=== PATIENT | male | born 1980 | race Two or more races ===

== ENCOUNTER 2018-09-21 16:04 | Emergency (ER) | payer OTHER, SELFPAY ==
[2018-09-21 16:04] VITALS: BP 123/71; PULSE 94; RESP 18; TEMP 36.4; O2SAT 98; BMI 32.5
--- NOTE | 2018-09-21 16:21 | CT_ITS ---
STUDY: CT ABDOMEN AND PELVIS WITHOUT CONTRAST REASON FOR EXAM: Male, 38 years old. Right-sided abdominal pain after urination, feels of bulge RADIATION DOSAGE (If Supplied By Facility): CTDIvol = ( 16.86 ) mGy, DLP = ( 922.73 ) mGycm TECHNIQUE: Transaxial images were obtained from the dome of the diaphragm to the symphysis pubis without oral contrast, and without intravenous contrast. Sagittal and coronal images were reconstructed. Individualized dose optimization techniques were used for this CT. COMPARISON: None. FINDINGS: The visualized lung bases are unremarkable. The visualized portions of the heart are within normal limits. Normal liver. The gallbladder is contracted. Normal spleen. Normal pancreas. Normal bilateral adrenal glands. Normal right kidney. Multiple nonobstructing left renal stones measuring up to 7 mm. Normal visualized stomach. Normal small intestine. Normal colon. The appendix is visualized and appears normal. Normal abdominal aorta. Normal inferior vena cava. Normal retroperitoneum. Normal urinary bladder. Normal abdominal wall. Normal osseous structures. CT/Abdomen/Pelvis without Cont IMPRESSION: No evidence of acute intestinal pathology or acute obstructive uropathy. No hernias are seen. Electronically Signed: Patrick Coello MD at 17:31 EDT Tel , Service support ,
--- NOTE | 2018-09-21 16:24 | ED.VISSUMM ---
- ER Visit Summary Date of Service: 09/21/18 Chief Complaint: Abdominal pain History of Present Illness: The patient is a 38 M with right upper quadrant abdominal pain for 2 days. The pain started when he was urinating in a crouched position. The pain radiates through to his back. It is severe. Associated with no other symptoms. He never had this pain before. No history of gallbladder or liver disease. No respiratory or cardiac symptoms. No urinary symptoms. No GI symptoms. No fever or rash. No history of abdominal surgeries. No trauma. Pain is burning and shooting at times. Pain is very severe such that even if the water in the shower hits his skin, he is having severe pain. Physical Examination: Afebrile and vital signs unremarkable. Patient is alert and oriented. No acute distress. Inspection is normal. No rash. No distention. Tender to palpation with light touch over the right hemiabdomen. No guarding or rebound. The remainder of his exam is unremarkable. Test Results: Laboratory studies, urinalysis, CT pending. Emergency Department Course and Treatment: Patient declined pain medication. Given the severity of his symptoms, labs, urine, imaging performed. Will reevaluate. White count 12.1 and glucose 165. Hepatic panel and lipase unremarkable. Urinalysis unremarkable. CT abdomen and pelvis showed no acute findings. Patient was eventually treated with Toradol and Zofran. Patient's work-up is unremarkable. There are no symptoms that are consistent with biliary colic, renal colic. No evidence of shingles. Patient has abdominal wall pain, possible strain. I believe he is appropriate for outpatient follow-up. He may take [id number] remedies for pain. He was given a short course of [place] for breakthrough pain. Call PCP tomorrow. Return right away for any new or worsening issues. Treatment Plan: As above Disposition: Discharge Impression: Abdominal wall pain This note was generated with [employer] dictation software. It may contain incorrect words, spelling, and punctuation that were not noted in review of the chart prior to signing ED Disposition - Plan for ED Patient: Referrals: Real Robles MD [Primary Care Provider] -
--- NOTE | 2018-09-21 16:30 | ED.DCSUM_ITS ---
- ER Visit Summary Date of Service: 09/21/18 Chief Complaint: Abdominal pain History of Present Illness: The patient is a 38 M with right upper quadrant abdominal pain for 2 days. The pain started when he was urinating in a crouched position. The pain radiates through to his back. It is severe. Associated with no other symptoms. He never had this pain before. No history of gallbladder or liver disease. No respiratory or cardiac symptoms. No urinary symptoms. No GI symptoms. No fever or rash. No history of abdominal surgeries. No trauma. Pain is burning and shooting at times. Pain is very severe such that even if the water in the shower hits his skin, he is having severe pain. Physical Examination: Afebrile and vital signs unremarkable. Patient is alert and oriented. No acute distress. Inspection is normal. No rash. No distention. Tender to palpation with light touch over the right hemiabdomen. No guarding or rebound. The remainder of his exam is unremarkable. Test Results: Laboratory studies, urinalysis, CT pending. Emergency Department Course and Treatment: Patient declined pain medication. Given the severity of his symptoms, labs, urine, imaging performed. Will reevaluate. White count 12.1 and glucose 165. Hepatic panel and lipase unremarkable. Urinalysis unremarkable. CT abdomen and pelvis showed no acute findings. Patient was eventually treated with Toradol and Zofran. Patient's work-up is unremarkable. There are no symptoms that are consistent with biliary colic, renal colic. No evidence of shingles. Patient has abdominal wall pain, possible strain. I believe he is appropriate for outpatient follow-up. He may take [id number] remedies for pain. He was given a short course of [place] for breakthrough pain. Call PCP tomorrow. Return right away for any new or worsening issues. Treatment Plan: As above Disposition: Discharge Impression: Abdominal wall pain This note was generated with [employer] dictation software. It may contain incorrect words, spelling, and punctuation that were not noted in review of the chart prior to signing ED Disposition - Plan for ED Patient: Referrals: Real Robles MD [Primary Care Provider] -
[2018-09-21 16:38] LABS: Bacteria 0 SEEN /hpf (None Seen); Mucous, Urine 0 SEEN /hpf (<or=2+); Red Blood Cells-Urine 0 SEEN /hpf (0-5); Squamous Epithelial Cells - UA 0 SEEN /hpf (0-5); White Blood Cells 0 SEEN /hpf (0-5)
[2018-09-21 16:39] LABS: Color, Urine Yellow (Yellow); Glucose, Dipstick Normal (Normal); Ketone-Dipstick Negative (Negative); Leukocyte Esterase-Dipstick Negative /ul (Negative); Nitrite-Dipstick Negative (Negative); Occult Blood-Urine Negative /ul (Negative); Protein-Dipstick Negative (Negative); Specific Gravity, Urine 1.015 (1.002-1.030); Urine Bilirubin Dipstick Negative (Negative); Urine Clarity Clear (Clear); Urine Urobilinogen Normal (Normal)
[2018-09-21] MEDS: 0.9% Normal Saline 1,000 ML 1000 ML IV (16:43)
[2018-09-21 16:50] LABS: Absolute Lymphocyte Count 2.78 X10^3/ul (0.83-4.51); Absolute Neutrophil Count 8.2 X10^3/uL (2.0-7.7); Basophil# 0.01 X10^3/uL; Basophil% 0.1 % (0-1); Eosinophil# 0.13 X10^3/uL; Eosinophils% 1.1 % (0-5); Hematocrit 45.1 % (40-54); Hemoglobin 14.8 g/dl (13.0-16.5); Lymphocyte # 2.78 X10^3/ul (4.0); Lymphocyte % 22.9 % (19-41); Mean Corp Hgb Conc 32.8 g/gl (32-36); Mean Corpuscular Hgb 27.6 pg (27.0-32.0); Mean Corpuscular Volume 84.1 fL (80-94); Mean Platelet Vol. 9.6 fl (6.2-12.0); Monocyte# 0.95 X10^3/uL; Monocyte% 7.8 % (0-10); Neutrophil # 8.24 X10^3/uL (2.7-7.7); Neutrophil % 67.9 % (47-70); Platelet Count 258 K/mm3 (150-450); RBC Distribution Width CV 14.2 % (11.6-14.6); RBC Distribution Width SD 43.9 fl (35.1-43.9); Red Blood Count 5.36 M/mm3 (4.6-6.2); White Blood Count 12.1 K/mm3 (4.4-11.0)
[2018-09-21 16:51] LABS: POSITIVE COUNT NO; POSITIVE DIFFERENTIAL NO; POSITIVE MORPHOLOGY NO
[2018-09-21 17:05] LABS: ALB/GLOB Ratio 0.9 RATIO (0.9-2.4); AST(SGOT) 12 U/L (15-37); Alanine Aminotransfer ALT/SGPT 23 U/L (16-61); Alkaline Phosphatase 82 U/L (45-117); Anion Gap 6 (5-15); BUN 8 mg/dL (7-18); BUN/Creat Ratio 10.8 RATIO (10-20); Calcium,Total 8.6 mg/dL (8.5-10.1); Chloride 104 mmol/L (98-107); Creatinine, Serum 0.74 mg/dL (0.70-1.30); EST Glomerular Filtration Rate 127 mL/min (>60); Est Glom Filt Rate - Afr Amer 154 mL/min (>60); Globulin 4.7 g/dL (2.2-4.2); Glucose 165 mg/dL (74-106); Lipase 105 U/L (73-393); Potassium 3.6 mmol/L (3.5-5.1); Protein, Total 8.7 g/dL (6.4-8.2); Sodium Level 138 mmol/L (136-145)
[2018-09-21] MEDS: Ketorolac 30 MG/ML Syringe IV (18:08)
[2018-09-21] MEDS: Ondansetron 4 MG/2 ML Vial IV (18:08)
[2018-09-21 18:11] VITALS: BP 118/79; PULSE 81; RESP 14; O2SAT 99
--- NOTE | 2018-09-21 18:33 | DCINST.ED_ITS ---
ED Disposition - Plan for ED Patient: Instructions: ED Abdominal Pain Unkn Cause Prescriptions: Hydrocodone Bitart/Apap 5-325 [[place] 5MG-325MG] 1 tab PO Q6H PRN PRN 3 Days #10 tab PRN Reason: Pain Referrals: Real Robles MD [Primary Care Provider] -
[2018-09-21 18:52] VITALS: BP 148/93; PULSE 71; RESP 14; O2SAT 99
== END 2018-09-21 18:53 | disposition home or self-care (01) ==
LOC: ED 16:36
PROVIDERS: Emergency Provider Emergency Medicine; Family Provider Family Medicine; PCP Family Medicine
DX: R10.11 Right upper quadrant pain (principal); E11.9 Type 2 diabetes mellitus without complications; F17.210 Nicotine dependence, cigarettes, uncomplicated; Z79.84 Long term (current) use of oral hypoglycemic drugs; Z79.899 Other long term (current) drug therapy
CPT/HCPCS: 74176; 80053; 81001; 83690; 85025; 96361; 96374; 96375; 99284; J7030; A4216; J2405